=== PATIENT | male | born 1990 | race African-American/Black ===

== ENCOUNTER 2021-05-30 10:37 | Emergency (ER) | payer OTHER ==
[~2021-05-30] VITALS: Ht 160 cm; Wt 63.5 kg
[2021-05-30 10:37] VITALS: BP 150/65
--- NOTE | 2021-05-30 10:43 | NUR ---
SEEN AND EXAMINED BY .
--- NOTE | 2021-05-30 10:54 | NUR ---
Patient discharged in custody in stable condition. Written and verbal after care instructions given. Patient verbalizes understanding of instruction.
== END 2021-05-30 10:59 | disposition home or self-care (01) ==
LOC: ER 10:47
DX: F15.90 Other stimulant use, unspecified, uncomplicated (principal); F17.200 Nicotine dependence, unspecified, uncomplicated; Z59.00 Homelessness unspecified